=== PATIENT | female | born 1940 | race Caucasian/White ===

== ENCOUNTER 2020-03-21 17:15 | Emergency (ER) | payer MEDICARE ==
[~2020-03-21] VITALS: Ht 162.6 cm; Wt 80.0 kg
[~2020-03-21 17:15] MED LIST: AMLO10TA8 PO; CEFD300C37 PO; CLON0.1T22 PO; DOXA1TAB2 PO; IBUP-1221 PO; LISI-170 PO; SULF500T36 PO
[2020-03-21 17:32] VITALS: BP 132/66
--- NOTE | 2020-03-21 17:50 | NUR ---
ON ARRIVAL BELONGINGS SECURED IN LOCKER. ROOM EQUIPMENT BEHIND PULL DOWN DOORS.
[2020-03-21 17:53] LABS: BASOPHILS # (AUTO) 0.05 x10^3/uL (0-0.1); BASOPHILS % (AUTO) 0 % (0-1); EOSINOPHILS # (AUTO) 0.14 x10^3/uL (0-0.4); EOSINOPHILS % (AUTO) 1 % (1-7); LYMPHOCYTES # (AUTO) 2.23 x10^3/uL (1-3.4); LYMPHOCYTES % (AUTO) 16 % (22-44); MD NO; MEAN CORPUSCULAR HEMOGLOBIN 29.9 pg (27.0-34.8); MEAN CORPUSCULAR HGB CONC 32.9 g/dL (32.4-35.8); MEAN CORPUSCULAR VOLUME 90.9 fL (80-100); MONOCYTES # (AUTO) 0.71 x10^3/uL (0.2-0.8); MONOCYTES % (AUTO) 5 % (2-9); NEUTROPHILS # (AUTO) 10.66 x10^3/uL (1.8-6.8); NEUTROPHILS % (AUTO) 77 % (42-75); PLATELET COUNT 329 x10^3/uL (130-400); RED CELL DISTRIBUTION WIDTH 14.1 % (9.6-15.2)
--- NOTE | 2020-03-21 18:00 | NUR ---
TECH AT BEDSIDE CLEANING WRIST WOUNDS AND RE-DRESSING
[2020-03-21 18:02] LABS: ALANINE AMINOTRANSFERASE 16 U/L (12-78); ALBUMIN 3.5 g/dL (3.4-5.0); ANION GAP 5 mmol/L (5-15); CALCIUM 9.3 mg/dL (8.5-10.1); CHLORIDE 116 mmol/L (98-107); CREATININE 1.84 mg/dL (0.55-1.02); SALICYLATE LEVEL 4.8 mg/dL (2.8-20.0)
[2020-03-21 18:04] LABS: ALKALINE PHOSPHATASE 83 U/L (45-117); BILIRUBIN,TOTAL 0.3 mg/dL (0.2-1.0); TOTAL PROTEIN 7.3 g/dL (6.4-8.2)
[2020-03-21 18:25] LABS: MICROSCOPIC AUTO
[2020-03-21 18:51] LABS: AMPHETAMINE SCREEN, URINE Negative (Negative); BARBITURATE SCREEN, URINE Negative (Negative); BENZODIAZEPINE SCREEN, URINE Negative (Negative); CANNABINOID SCREEN, URINE Negative (Negative); COCAINE SCREEN, URINE Negative (Negative); METHADONE SCREEN, URINE Negative (Negative); OPIATE SCREEN, URINE Negative (Negative)
--- NOTE | 2020-03-21 19:05 | NUR ---
PT WATCHING TV, COOPERATIVE. REPORT TO BRAIN CHRISTOPHER
--- NOTE | 2020-03-21 20:23 | NUR ---
THROUGHPUT RN: PACKET FAXED TO [facility] PER REQUEST. AWAITING ACCEPTANCE/DENIAL
--- NOTE | 2020-03-21 20:39 | NUR ---
mt: [facility] called and accepted pt for [id number]. Accepting doctor is Dr. Lewis and rn is Angelica.
[2020-03-21] MEDS ORDERED: CEFDINIR 300 MG CAPSULE PO ONE (21:00)
[2020-03-21] MEDS ORDERED: CEFDINIR 300 MG CAPSULE ONE (21:39)
== END 2020-03-22 04:26 | disposition other institution (70) ==
LOC: ED 18:19
DX: T14.91XA Suicide attempt, initial encounter (principal); S61.512A Laceration without foreign body of left wrist, initial encounter; I10 Essential (primary) hypertension; N30.00 Acute cystitis without hematuria; R94.4 Abnormal results of kidney function studies; I44.0 Atrioventricular block, first degree; X78.1XXA Intentional self-harm by knife, initial encounter; Y93.89 Activity, other specified; Y92.89 Other specified places as the place of occurrence of the external cause; Y99.8 Other external cause status
CPT/HCPCS: 12002; 36415; 80053; 80307; 81001; 85025; 87086; 93005; 99284